=== PATIENT | female | born 1970 | race Caucasian/White ===

== ENCOUNTER 2016-07-11 12:58 | Emergency (ER) | payer OTHER ==
[2016-07-11 13:08] VITALS: BP 137/80; PULSE 90; RESP 18; TEMP 98.5
[2016-07-11] MEDS ORDERED: KETOROLAC 60 MG/2 ML VIAL IM STA (14:04)
[2016-07-11] MEDS ORDERED: methylPREDNISolone SOD SUCCI 125 MG/2 ML VIAL IM ONE (14:04)
[2016-07-11] MEDS ORDERED: CYCLOBENZAPRINE 10MG STARTER 3 TAB BTL PO STA (14:08)
--- NOTE | 2016-07-11 14:12 | ED ---
Back Pain HPI - General Chief Complaint: Back Pain/Injury Stated Complaint: Back Pain Time Seen by Provider: 07/11/16 13:40 Source: patient, RN notes reviewed Limitations: no limitations - History of Present Illness Initial Comments: Patient is a 45-year-old female chief complaint of right leg sciatica pain for the past week. 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 She denies any other trauma or injury to cause this. She states this is happened to her before but was a year ago. She reports that she's been trying muscle relaxers and Tylenol however does not help the pain. Patient denies any fever or chills or saddle anesthesias. She reports that she does have no foot drop and has full range of motion. Hip however just causes some significant pain with straight leg raise. Patient is currently standing at the bedside. Patient denies any recent fever , chills, shortness of breath, chest pain,abdominal pain, nausea vomiting, numbness or tingling, dysuria or hematuria, constipation or diarrhea, headaches or visual changes, or any other current symptoms - Related Data Previous Rx's Medication Instructions Recorded HYDROcodone/APAP 5-325MG [[place] 1 tab PO Q6HR PRN #30 tab 07/31/15 5-325] Ibuprofen [Motrin] 600 mg PO Q8HR PRN #30 tab 07/31/15 Orphenadrine [Norflex] 100 mg PO Q12H PRN #10 tablet.er 07/31/15 Cyclobenzaprine [Flexeril] 10 mg PO TID #15 tab 07/11/16 Dexamethasone 0.75 mg PO DAILY #12 tab 07/11/16 HYDROcodone/APAP 5-325MG [[place] 1 tab PO Q6HR PRN #15 tab 07/11/16 5-325] Allergies Allergy/AdvReac Type Severity Reaction Status Date / Time No Known Allergies Allergy Verified 07/11/16 13:08 Review of Systems ROS Statement: Those systems with pertinent positive or pertinent negative responses have been documented in the HPI. ROS Other: All systems not noted in ROS Statement are negative. Past Medical History Past Medical History: No Reported History Additional Past Medical History / Comment(s): BACK PAIN History of Any Multi-Drug Resistant Organisms: None Reported Past Surgical History: Tubal Ligation Past Psychological History: Anxiety Smoking Status: Current every day smoker Past Alcohol Use History: None Reported Past Drug Use History: Marijuana General Exam - General Exam Comments Initial Comments: Patient is a pacing 45-year-old female. Patient appears to be in significant discomfort radiating down the right leg. Limitations: no limitations General appearance: alert, in no apparent distress Head exam: Present: atraumatic, normocephalic, normal inspection Eye exam: Present: normal appearance, PERRL, EOMI. Absent: scleral icterus, conjunctival injection, periorbital swelling ENT exam: Present: normal exam, mucous membranes moist Neck exam: Present: normal inspection. Absent: tenderness, meningismus, lymphadenopathy Respiratory exam: Present: normal lung sounds bilaterally. Absent: respiratory distress, wheezes, rales, rhonchi, stridor Cardiovascular Exam: Present: regular rate, normal rhythm, normal heart sounds. Absent: systolic murmur, diastolic murmur, rubs, gallop, clicks GI/Abdominal exam: Present: soft, normal bowel sounds. Absent: distended, tenderness, guarding, rebound, rigid Extremities exam: Present: normal inspection, full ROM, normal capillary refill. Absent: tenderness, pedal edema, joint swelling, calf tenderness Back exam: Present: normal inspection, tenderness (Right lumbar spinal tenderness.), other (Positive straight leg exam.). Absent: full ROM Expanded Back exam: Sciatic Notch Tenderness: Right, Positive Straight Leg Raise: Right Neurological exam: Present: alert, oriented X3, CN II-XII intact Psychiatric exam: Present: normal affect, normal mood Skin exam: Present: warm, dry, intact, normal color. Absent: rash Course Vital Signs 07/11/16 13:05 Temperature 98.5 F Pulse Rate 90 Respiratory 18 Rate Blood Pressure 137/80 O2 Sat by Pulse 99 Oximetry Medical Decision Making - Medical Decision Making Patient is a 45-year-old with right-sided leg sciatic back pain. Patient will be given IM Toradol and Solu-Medrol. She is given by mouth Norflex. Patient reports that the pain medication is starting to help. She denies any x-rays or imaging studies at this time. Patient will be discharged with pain medication and muscle relaxers. I discussed close follow-up with a primary care physician. Patient understands treatment plan will comply. Also restrict returning there is any signs of saddle anesthesias or urinary incontinence. Disposition Clinical Impression: Right-sided low back pain with sciatica Disposition: HOME SELF-CARE Condition: Good Instructions: Acute Low Back Pain (ED), Sciatica (ED) Additional Instructions: Patient advised to rest, apply heat and ice over the lower back. Take medications as prescribed. Follow-up with correspondence specialist if symptoms continue persist. Return to emergency Department if any alarming signs or symptoms occur. Prescriptions: Cyclobenzaprine [Flexeril] 10 mg PO TID #15 tab Dexamethasone 0.75 mg PO DAILY #12 tab HYDROcodone/APAP 5-325MG [[place] 5-325] 1 tab PO Q6HR PRN #15 tab PRN Reason: Pain Referrals: Polly Bowen MD [STAFF PHYSICIAN] - 1-2 days Time of Disposition: 14:15
== END 2016-07-11 14:27 | disposition home or self-care (01) ==
LOC: EC 12:58
DX: M54.41 Lumbago with sciatica, right side (principal); F17.200 Nicotine dependence, unspecified, uncomplicated
CPT/HCPCS: 99283; 96372 ×2; J2930; J1885

== ENCOUNTER 2016-12-20 08:37 | Emergency (ER) | payer OTHER ==
[2016-12-20 08:50] VITALS: BP 149/80; PULSE 100; RESP 20; TEMP 98.2
--- NOTE | 2016-12-20 09:02 | ED ---
General Adult HPI - General Chief complaint: Back Pain/Injury Stated complaint: BACK PAIN Time Seen by Provider: 12/20/16 08:52 Source: patient, RN notes reviewed, old records reviewed Mode of arrival: ambulatory Limitations: no limitations - History of Present Illness Initial comments: Patient 46-year-old female who presents emergency room today with a chief complaint of sciatic pain going down the right leg. She does not that she's had in the past. Denies any specific injury or trauma. States pain started approximately a week ago seems to be getting worse. Since she's tried some ibuprofen and Tylenol at home with little relief the symptoms. Does admit that she's been seen here in the emergency room for this complaint and past. [employer] patient works for her is [place], ibuprofen, Norflex. She denies any bowel or bladder incontinence retention. Denies any saddle anesthesia. Denies any other complaints or associated symptoms. Patient denies any recent fever, chills, shortness of breath, chest pain, abdominal pain, nausea or vomiting, dysuria or hematuria, constipation or diarrhea, headaches or visual changes, or any other complaints. - Related Data Home Medications Medication Instructions Recorded Confirmed Acetaminophen [Tylenol Extra 1,500 mg PO BID PRN 12/20/16 12/20/16 Strength] Ibuprofen [Advil] 600 mg PO BID PRN 12/20/16 12/20/16 Previous Rx's Medication Instructions Recorded Hydrocodone/Acetaminophen [[place] 1 each PO Q6HR PRN #15 tab 12/20/16 5-325] Ibuprofen [Motrin] 600 mg PO Q6HR PRN #40 day 12/20/16 Orphenadrine [Norflex] 100 mg PO Q12H #20 tablet.er 12/20/16 Allergies Allergy/AdvReac Type Severity Reaction Status Date / Time No Known Allergies Allergy Verified 12/20/16 08:53 Review of Systems ROS Statement: Those systems with pertinent positive or pertinent negative responses have been documented in the HPI. ROS Other: All systems not noted in ROS Statement are negative. Past Medical History Past Medical History: No Reported History Additional Past Medical History / Comment(s): BACK PAIN History of Any Multi-Drug Resistant Organisms: None Reported Past Surgical History: Tubal Ligation Past Psychological History: Anxiety, Depression Smoking Status: Current every day smoker Past Alcohol Use History: None Reported Past Drug Use History: Marijuana General Exam - General Exam Comments Initial Comments: General: The patient is awake and alert, in no distress, and does not appear acutely ill. Eye: Pupils are equal, round and reactive to light, extra-ocular movements are intact. No nystagmus. There is normal conjunctiva bilaterally. No signs of icterus. Ears, nose, mouth and throat: There are moist mucous membranes and no oral lesions. Neck: The neck is supple, there is no tenderness or JVD. Cardiovascular: There is a regular rate and rhythm. No murmur, rub or gallop is appreciated. Respiratory: Lungs are clear to auscultation, respirations are non-labored, breath sounds are equal. No wheezes, stridor, rales, or rhonchi. Musculoskeletal: Paracervical thoracic, lumbar spine. No step-offs forms appreciated. Patient does have tenderness lower lumbar from L2 to S1. Paravertebral tenderness greater on the right side of the left. Strength 5/5. Sensation intact. Pulses equal bilaterally 2+. Neurological: A&O x 3. CN II-XII intact, There are no obvious motor or sensory deficits. Coordination appears grossly intact. Speech is normal. Skin: Skin is warm and dry and no rashes or lesions are noted. Psychiatric: Cooperative, appropriate mood & affect, normal judgment. Limitations: no limitations Course Vital Signs 12/20/16 08:47 Temperature 98.2 F Pulse Rate 100 Respiratory 20 Rate Blood Pressure 149/80 O2 Sat by Pulse 98 Oximetry Medical Decision Making - Medical Decision Making Patient mitts that the symptoms are consistent with sciatic pain that she's had in the past. Denies any injury or trauma. There is no bowel or bladder incontinence or retention. No saddle anesthesia. Patient will be given a short prescription of pain medication and Norflex to go home with. She is advised follow-up the family doctor for further evaluation and possible MRI. Disposition Clinical Impression: Acute exacerbation of chronic low back pain Disposition: HOME SELF-CARE Condition: Good Instructions: Chronic Back Pain (ED) Additional Instructions: Please use medication as discussed. Please follow-up with family doctor in the next 2 days of symptoms have not improved. Please return to emergency room if the symptoms increase or worsen or for any other concerns. Prescriptions: Hydrocodone/Acetaminophen [[place] 5-325] 1 each PO Q6HR PRN #15 tab PRN Reason: Pain Ibuprofen [Motrin] 600 mg PO Q6HR PRN #40 day PRN Reason: Pain Orphenadrine [Norflex] 100 mg PO Q12H #20 tablet.er Referrals: None,Stated [Primary Care Provider] - 1-2 days Polly Bowen MD [STAFF PHYSICIAN] - 1-2 days Time of Disposition: 09:01
== END 2016-12-20 09:09 | disposition home or self-care (01) ==
LOC: EC 08:37
DX: G89.29 Other chronic pain (principal); M54.5 Low back pain; F17.200 Nicotine dependence, unspecified, uncomplicated
CPT/HCPCS: 99283

== ENCOUNTER 2016-12-27 07:25 | Emergency (ER) | payer OTHER ==
[2016-12-27 07:34] VITALS: BP 149/68; PULSE 82; RESP 17; TEMP 97
--- NOTE | 2016-12-27 08:30 | ED ---
General Adult HPI - General Chief complaint: Back Pain/Injury Stated complaint: sciaticia Time Seen by Provider: 12/27/16 08:16 Source: patient, RN notes reviewed Mode of arrival: ambulatory Limitations: no limitations - History of Present Illness Initial comments: 46-year-old female who presents emergency room today with a chief complaint of increased lower back pain the left side. She states she does have a history of chronic low back pain. States she was seen here recently given medications for this but states that she was at work and lifted up a empty box and started having increased pain left lower back. She denies any bowel or bladder incontinence retention. Denies any saddle anesthesia. Denies any lumbar radiculopathy. Sensations show has 1 tab of [place] and Norflex at home. Patient denies any other complaints or symptoms. Patient denies any recent fever , chills, shortness of breath, chest pain, abdominal pain, nausea or vomiting, numbness or tingling, dysuria or hematuria, constipation or diarrhea, headaches or visual changes, or any other complaints. - Related Data Home Medications Medication Instructions Recorded Confirmed Hydrocodone/Acetaminophen [[place] 1 tab PO Q6HR PRN 12/27/16 12/27/16 5-325] Previous Rx's Medication Instructions Recorded Ibuprofen [Motrin] 600 mg PO Q6HR PRN #40 day 12/20/16 Orphenadrine [Norflex] 100 mg PO Q12H #20 tablet.er 12/20/16 Dexamethasone 0.75 mg PO DIRECTED #12 tablet 12/27/16 Hydrocodone/Acetaminophen [[place] 1 each PO Q6HR PRN #8 tab 12/27/16 5-325] Ibuprofen [Motrin] 600 mg PO Q6HR PRN #30 day 12/27/16 Orphenadrine [Norflex] 100 mg PO Q12H #20 tablet.er 12/27/16 Allergies Allergy/AdvReac Type Severity Reaction Status Date / Time No Known Allergies Allergy Verified 12/27/16 08:02 Review of Systems ROS Statement: Those systems with pertinent positive or pertinent negative responses have been documented in the HPI. ROS Other: All systems not noted in ROS Statement are negative. Past Medical History Past Medical History: No Reported History Additional Past Medical History / Comment(s): BACK PAIN History of Any Multi-Drug Resistant Organisms: None Reported Past Surgical History: Tubal Ligation Past Psychological History: Anxiety, Depression Smoking Status: Current every day smoker Past Alcohol Use History: None Reported Past Drug Use History: Marijuana General Exam - General Exam Comments Initial Comments: General: The patient is awake and alert, in no distress, and does not appear acutely ill. Eye: Pupils are equal, round and reactive to light, extra-ocular movements are intact. No nystagmus. There is normal conjunctiva bilaterally. No signs of icterus. Ears, nose, mouth and throat: There are moist mucous membranes and no oral lesions. Neck: The neck is supple, there is no tenderness or JVD. Cardiovascular: There is a regular rate and rhythm. No murmur, rub or gallop is appreciated. Respiratory: Lungs are clear to auscultation, respirations are non-labored, breath sounds are equal. No wheezes, stridor, rales, or rhonchi. Gastrointestinal: Soft, non-distended, non-tender abdomen without masses or organomegaly noted. There is no rebound or guarding present. No CVA tenderness. Bowel sounds are unremarkable. Musculoskeletal: Normal ROM. No step-offs forms appreciated in thoracic lumbar spine. Mild tenderness over the spinous processes. Patient does have paravertebral tenderness on the left lower lumbar. Strength 5/5. Sensation intact. Pulses equal bilaterally 2+. Neurological: A&O x 3. CN II-XII intact, There are no obvious motor or sensory deficits. Coordination appears grossly intact. Speech is normal. Skin: Skin is warm and dry and no rashes or lesions are noted. Psychiatric: Cooperative, appropriate mood & affect, normal judgment. Limitations: no limitations Course Vital Signs 12/27/16 07:31 Temperature 97.0 F L Pulse Rate 82 Respiratory 17 Rate Blood Pressure 149/68 O2 Sat by Pulse 99 Oximetry Medical Decision Making - Medical Decision Making Admission are made prescription system report was reviewed revealing patient has not had any other narcotics other than her last visit when she was seen here and given 15 tablets [place]. Patient will be given a short prescription of 6 tabs of [place] today. She is advised that she needs follow-up family doctor. Disposition Clinical Impression: Acute exacerbation of chronic low back pain Disposition: HOME SELF-CARE Condition: Good Instructions: Chronic Back Pain (ED) Additional Instructions: Please use medication as discussed. Please follow-up with family doctor in the next 2 days of symptoms have not improved. Please return to emergency room if the symptoms increase or worsen or for any other concerns. Prescriptions: Dexamethasone 0.75 mg PO DIRECTED #12 tablet Hydrocodone/Acetaminophen [[place] 5-325] 1 each PO Q6HR PRN #8 tab PRN Reason: Pain Ibuprofen [Motrin] 600 mg PO Q6HR PRN #30 day PRN Reason: Pain Orphenadrine [Norflex] 100 mg PO Q12H #20 tablet.er Referrals: None,Stated [Primary Care Provider] - 1-2 days Time of Disposition: 08:29
== END 2016-12-27 08:39 | disposition home or self-care (01) ==
LOC: EC 07:25
DX: G89.29 Other chronic pain (principal); M54.5 Low back pain; F17.200 Nicotine dependence, unspecified, uncomplicated
CPT/HCPCS: 99283

== ENCOUNTER 2016-12-28 06:21 | Emergency (ER) | payer OTHER ==
[2016-12-28] MEDS ORDERED: MORPHINE SULFATE 4 MG/ML SYRINGE IM STA (07:06)
[2016-12-28] MEDS ORDERED: KETOROLAC 60 MG/2 ML VIAL IM STA (07:06)
[2016-12-28] MEDS ORDERED: DIAZEPAM 5 MG/ML 2 ML SYRINGE IM ONE (07:07)
--- NOTE | 2016-12-28 07:15 | ED ---
General Adult HPI - General Chief complaint: Back Pain/Injury Stated complaint: Back Pain Time Seen by Provider: 12/28/16 07:00 Source: patient, RN notes reviewed, old records reviewed Mode of arrival: wheelchair Limitations: no limitations - History of Present Illness Initial comments: 1-year-old female presents for reevaluation of back pain. Patient does have history of chronic back pain and right-sided sciatica. Patient states yesterday she was coughing had sudden onset of pain. Pain is localized to the back. No numbness or tingling. No radiating pain to the lower extremities. No fever chills. Patient was discharged yesterday with pain medication. She was unable to tolerate these. She did throw up due to pain. Denies any bowel or bladder incontinence. Patient has had some difficulty in breathing secondary to pain. She is not on any long-term narcotics for pain. She has no significant past medical history. - Related Data Home Medications Medication Instructions Recorded Confirmed Hydrocodone/Acetaminophen [[place] 1 tab PO Q6HR PRN 12/27/16 12/28/16 5-325] Previous Rx's Medication Instructions Recorded Ibuprofen [Motrin] 600 mg PO Q6HR PRN #40 day 12/20/16 Orphenadrine [Norflex] 100 mg PO Q12H #20 tablet.er 12/20/16 Dexamethasone 0.75 mg PO DIRECTED #12 tablet 12/27/16 HYDROcodone/APAP 5-325MG [[place] 1 tab PO Q6HR PRN #18 tab 12/28/16 5-325] Allergies Allergy/AdvReac Type Severity Reaction Status Date / Time No Known Allergies Allergy Verified 12/27/16 08:02 Review of Systems ROS Statement: Those systems with pertinent positive or pertinent negative responses have been documented in the HPI. ROS Other: All systems not noted in ROS Statement are negative. Past Medical History Past Medical History: No Reported History Additional Past Medical History / Comment(s): BACK PAIN History of Any Multi-Drug Resistant Organisms: None Reported Past Surgical History: Tubal Ligation Past Psychological History: Anxiety, Depression Smoking Status: Current every day smoker Past Alcohol Use History: None Reported Past Drug Use History: Marijuana General Exam Limitations: no limitations General appearance: alert, in distress Head exam: Present: atraumatic, normocephalic Eye exam: Present: normal appearance, PERRL ENT exam: Present: normal exam, mucous membranes moist Neck exam: Present: normal inspection. Absent: tenderness Respiratory exam: Present: respiratory distress Cardiovascular Exam: Present: regular rate, normal rhythm GI/Abdominal exam: Present: soft. Absent: distended, tenderness Extremities exam: Present: normal inspection, tenderness (Left paraspinal tenderness to palpation), other (Bilateral patellar reflexes 1-2+) Back exam: Absent: CVA tenderness (R), CVA tenderness (L) Neurological exam: Present: alert, oriented X3, reflexes normal. Absent: motor sensory deficit Psychiatric exam: Present: normal affect, normal mood Skin exam: Present: warm, dry, intact Course Vital Signs 12/28/16 12/28/16 06:23 08:50 Temperature 97.0 F L Pulse Rate 95 84 Respiratory 20 18 Rate Blood Pressure 143/76 125/71 O2 Sat by Pulse 98 98 Oximetry - Reevaluation(s) Reevaluation #1: 12/28/16 10:13 On reevaluation, patient is feeling much better. She is ambulatory without difficulty. Medical Decision Making - Medical Decision Making 46-year-old female with history of chronic back pain presenting with acute back pain over the past with orthopedist patient's second ER visit. On reevaluation she has significant paraspinal tenderness on the left. Patient normally describes her pain on the right. No shooting pain in the legs. No family weakness. No sensory changes. No bowel or bladder issues. Patient is given intramuscular pain medication. Urinalysis is obtained on demand. There is some signs of infection, patient does not have symptoms. Urine culture will be obtained. CT lumbar spine is obtained, does show some bilateral lysis at L5, and grade 1 spondylolisthesis L5-S1. This is discussed with orthopedic surgery. This is not an acute finding. Patient will follow-up on an outpatient basis. Patient is agreeable with this plan. She is feeling significantly better. She will be given some additional pain medication and can return to the emergency department with worsening symptoms. - Lab Data Lab Results 12/28/16 12/28/16 Range/Units 07:00 07:00 Urine Color Yellow Urine Appearance Cloudy H (Clear) Urine pH 5.5 (5.0-8.0) Ur Specific [place] 1.019 (1.001-1.035) Urine Protein Trace H (Negative) Urine Glucose (UA) Negative (Negative) Urine Ketones 1+ H (Negative) Urine Blood Trace H (Negative) Urine Nitrite Positive H (Negative) Urine Bilirubin Negative (Negative) Urine Urobilinogen <2.0 (<2.0) mg/dL Ur Leukocyte Esterase Moderate H (Negative) Urine RBC 1 (0-5) /hpf Urine WBC 12 H (0-5) /hpf Ur Squamous Epith Cells 6 H (0-4) /hpf Urine Bacteria Many H (None) /hpf Urine Mucus Occasional H (None) /hpf Urine HCG, Qual Not Detected (Not Detectd) Disposition Clinical Impression: Strain of lumbar region, Acute exacerbation of chronic low back pain Disposition: HOME SELF-CARE Condition: Good Instructions: Acute Low Back Pain (ED) Prescriptions: HYDROcodone/APAP 5-325MG [[place] 5-325] 1 tab PO Q6HR PRN #18 tab PRN Reason: Pain Referrals: None,Stated [Primary Care Provider] - 1-2 days Time of Disposition: 09:45
[2016-12-28 07:27] LABS: Appearance,Urine Cloudy (Clear); Bacteria,Urine Many /hpf; Bilirubin,Urine Negative (Negative); Glucose,Urine (UA) Negative (Negative); Ketones,Urine 1+ (Negative); Leukocyte Esterase,Urine Moderate (Negative); Mucus,Urine Occasional /hpf; Nitrite,Urine Positive (Negative); PH, Urine 5.5 (5.0-8.0); Particle Count 35274; Protein,Urine Trace (Negative); RBC,Urine 1 /hpf (0-5); Specific Gravity,Urine 1.019 (1.001-1.035); Squamous Epithelial Cell,Urine 6 /hpf (0-4); UA Billing (MACRO vs. MICRO) MICRO; Urobilinogen,Urine <2.0 mg/dL (<2.0); WBC,Urine 12 /hpf (0-5)
[2016-12-28 08:51] VITALS: RESP 18
--- NOTE | 2016-12-28 08:59 | CT ---
EXAMINATION TYPE: CT lumbar spine wo con DATE OF EXAM: 12/28/2016 8:16 AM COMPARISON: NONE HISTORY: Back pain CT DLP: 377.4 mGycm Automated exposure control for dose reduction was used. Unenhanced CT of the lumbar spine was performed. Bone and soft tissue window settings are submitted as well as coronal and sagittal reconstructions. FINDINGS: Visualized portions of the lungs are clear. No pleural fluid is seen. There is mild atheromatous calcification of the visualized arterial tree. Paraspinal soft tissues are otherwise unremarkable. There is a bilateral lysis at L5 with a grade 1 spondylolisthesis of L5 on S 1. There is a degenerative grade 1 spondylolisthesis of L3 on L4. At T12-L1, there is hypertrophic spur present in a left paracentral location mildly narrowing the lef t intervertebral foramen. There is no significant compressive discopathy. The facets are unremarkable . At L1-2, the intervertebral foramina are well maintained. There is no significant compressive discopa thy. The facets are unremarkable. L2-L3: Intervertebral foramina are widely patent. There is no significant compressive discopathy. The facets are unremarkable. L3-L4: There is disc space loss. There are hypertrophic changes in the facets. Intervertebral foramin a are well maintained. There is a bilobed disc displacement. L4-L5: Intervertebral foramina are widely maintained. There is a diffuse disc displacement. There is minimal facet hypertrophy. L5-S1: There is a bilateral lysis with a grade 1 spondylolisthesis of L5 on S1. There is a pseudodisc . Intervertebral foramina appear well maintained. IMPRESSION: 1. BILATERAL LYSIS AT L5 WITH A GRADE 1 SPONDYLOLISTHESIS OF L5 ON S1. 2. NO SIGNIFICANT COMPRESSIVE DISCOPATHY. 3. FACET ARTHROPATHY, MOST MARKED AT L3-4. 4. LEFT-SIDED INTERVERTEBRAL FORAMINAL NARROWING, T12-L1.
[2016-12-28 11:05] VITALS: BP 178/94; PULSE 82; TEMP 97.5
== END 2016-12-28 10:59 | disposition home or self-care (01) ==
LOC: EC 06:21
DX: S39.012A Strain of muscle, fascia and tendon of lower back, initial encounter (principal); M54.5 Low back pain; G89.29 Other chronic pain; F17.200 Nicotine dependence, unspecified, uncomplicated
CPT/HCPCS: 81001; 81025; 87086; 87077; 87186; 72131; 99284; 96372 ×3; J2270; J3360; J1885

== ENCOUNTER 2017-04-07 11:54 | Emergency (ER) | payer OTHER ==
[2017-04-07] MEDS ORDERED: CYCLOBENZAPRINE 10MG STARTER 3 TAB BTL PO STA (13:21)
--- NOTE | 2017-04-07 13:23 | ED ---
Back Pain HPI - General Chief Complaint: Back Pain/Injury Stated Complaint: BACK PAIN Time Seen by Provider: 04/07/17 12:52 Source: patient, RN notes reviewed, old records reviewed Limitations: no limitations - History of Present Illness Initial Comments: This is a 46 -year-old female presents with acute lower back pain radiating down her right leg. She reports she has a history of sciatica. She states that the symptoms started three days ago. She's currently undergoing of respiratory on this as well. She denies any dysuria, denies saddle anesthesias. She denies any chest pain, shortness of breath, nausea or vomiting. She reports that she was diagnosed with sciatica out of her pain medication. - Related Data Home Medications Medication Instructions Recorded Confirmed Acetaminophen Tab [Tylenol Tab] 1,000 mg PO Q6HR PRN 04/07/17 04/07/17 Acetaminophen/Diphenhydramine 1 tab PO HS PRN 04/07/17 04/07/17 [Tylenol PM 500-25mg] Multivitamins, Thera [Multivitamin 1 tab PO DAILY 04/07/17 04/07/17 (formulary)] Previous Rx's Medication Instructions Recorded Acetaminophen-Codeine 300-30mg 1 tab PO Q6H PRN #12 tablet 04/07/17 [Tylenol #3] Cyclobenzaprine [Flexeril] 10 mg PO TID #15 tab 04/07/17 methylPREDNISolone Dose Pack 4 mg PO DIRECTED #21 package 04/07/17 [Medrol Dose Pack] Allergies Allergy/AdvReac Type Severity Reaction Status Date / Time No Known Allergies Allergy Verified 04/07/17 12:54 Review of Systems ROS Statement: Those systems with pertinent positive or pertinent negative responses have been documented in the HPI. ROS Other: All systems not noted in ROS Statement are negative. Past Medical History Past Medical History: No Reported History Additional Past Medical History / Comment(s): BACK PAIN History of Any Multi-Drug Resistant Organisms: None Reported Past Surgical History: Tubal Ligation Past Psychological History: Anxiety, Depression Smoking Status: Current every day smoker Past Alcohol Use History: None Reported Past Drug Use History: Marijuana General Exam - General Exam Comments Initial Comments: This is a 46 year old female, no distress. Limitations: no limitations General appearance: alert, in no apparent distress Head exam: Present: atraumatic, normocephalic, normal inspection Eye exam: Present: normal appearance, PERRL, EOMI. Absent: scleral icterus, conjunctival injection, periorbital swelling ENT exam: Present: normal exam, mucous membranes moist Neck exam: Present: normal inspection. Absent: tenderness, meningismus, lymphadenopathy Respiratory exam: Present: normal lung sounds bilaterally. Absent: respiratory distress, wheezes, rales, rhonchi, stridor Cardiovascular Exam: Present: regular rate, normal rhythm, normal heart sounds. Absent: systolic murmur, diastolic murmur, rubs, gallop, clicks GI/Abdominal exam: Present: soft, normal bowel sounds. Absent: distended, tenderness, guarding, rebound, rigid Extremities exam: Present: normal inspection, full ROM, normal capillary refill. Absent: tenderness, pedal edema, joint swelling, calf tenderness Back exam: Present: normal inspection, paraspinal tenderness (right lumbar paraspinal tenderness. Pain at sciatic notch) Neurological exam: Present: alert, oriented X3, CN II-XII intact Psychiatric exam: Present: normal affect, normal mood Skin exam: Present: warm, dry, intact, normal color. Absent: rash Course Vital Signs 04/07/17 04/07/17 12:23 13:30 Temperature 97 F L 98.0 F Pulse Rate 73 88 Respiratory 18 20 Rate Blood Pressure 115/83 132/80 O2 Sat by Pulse 98 98 Oximetry Medical Decision Making - Medical Decision Making 46 year old female with acute lower back pain radiating down right leg. REports sciatic nerve is flaring up. No falls or trauma. Patient was offered IM injections and refused. She has an upper respiratory infection as well. Patient will be discharged with muscle relaxer, steroids, and pain mediaction. Discussed follow up with PCP and return parameters discussed. Disposition Clinical Impression: Back pain, Sciatica Disposition: HOME SELF-CARE Condition: Good Instructions: Acute Low Back Pain (ED) Additional Instructions: Advised to apply heat and ice over the area. Take the medications as prescribed. Return to the emergency department if any alarming signs or symptoms occur. Follow-up with primary care provider. Prescriptions: Acetaminophen-Codeine 300-30mg [Tylenol #3] 1 tab PO Q6H PRN #12 tablet PRN Reason: Pain Cyclobenzaprine [Flexeril] 10 mg PO TID #15 tab methylPREDNISolone Dose Pack [Medrol Dose Pack] 4 mg PO DIRECTED #21 package Referrals: None,Stated [Primary Care Provider] - 1-2 days Time of Disposition: 13:21
[2017-04-07 13:34] VITALS: BP 132/80; PULSE 88; RESP 20; TEMP 98
== END 2017-04-07 13:30 | disposition home or self-care (01) ==
LOC: EC 11:54
DX: M54.40 Lumbago with sciatica, unspecified side (principal); F17.200 Nicotine dependence, unspecified, uncomplicated; Z79.899 Other long term (current) drug therapy
CPT/HCPCS: 99283

== ENCOUNTER 2018-03-25 10:12 | Emergency (ER) | payer OTHER ==
[2018-03-25 10:33] VITALS: BP 143/85; PULSE 98; RESP 18; TEMP 97.8
[2018-03-25] MEDS ORDERED: KETOROLAC 60 MG/2 ML VIAL IM STA (11:00)
--- NOTE | 2018-03-25 11:05 | ED ---
General Adult HPI - General Chief complaint: Back Pain/Injury Stated complaint: sciatic nerve Time Seen by Provider: 03/25/18 10:42 Source: patient, RN notes reviewed Mode of arrival: ambulatory Limitations: no limitations - History of Present Illness Initial comments: Patient is a pleasant 47-year-old female presenting to the emergency Department with sciatic pain. Patient does have a history of this previously and does have a history of previous ER visits for this. Patient states normally when she has a she gets a shot as well as Vicodin and a muscle relaxer and Motrin. Patient states discomfort starts right sacral region extends towards the leg. No weakness. No tendons retention of bowel or bladder. No fevers. - Related Data Home Medications Medication Instructions Recorded Confirmed Ibuprofen [Advil] 600 mg PO Q8HR PRN 03/25/18 03/25/18 Previous Rx's Medication Instructions Recorded Hydrocodone/Acetaminophen [Pollock 1 each PO Q4HR PRN #15 tab 03/25/18 5-325] Ibuprofen [Motrin] 600 mg PO Q6HR PRN #20 tab 03/25/18 Allergies Allergy/AdvReac Type Severity Reaction Status Date / Time Penicillins Allergy Unknown Verified 03/25/18 10:49 Review of Systems ROS Statement: Those systems with pertinent positive or pertinent negative responses have been documented in the HPI. ROS Other: All systems not noted in ROS Statement are negative. Constitutional: Denies: fever Eyes: Denies: eye pain ENT: Denies: ear pain Respiratory: Denies: cough Cardiovascular: Denies: chest pain Endocrine: Denies: fatigue Gastrointestinal: Denies: abdominal pain Genitourinary: Denies: dysuria Musculoskeletal: Reports: back pain (Sciatic pain) Skin: Denies: rash Neurological: Denies: weakness Past Medical History Past Medical History: No Reported History Additional Past Medical History / Comment(s): BACK PAIN History of Any Multi-Drug Resistant Organisms: None Reported Past Surgical History: Tubal Ligation Past Psychological History: Anxiety, Depression Smoking Status: Current every day smoker Past Alcohol Use History: None Reported Past Drug Use History: Marijuana General Exam Limitations: no limitations General appearance: alert, in no apparent distress Head exam: Present: atraumatic Eye exam: Present: normal appearance Neck exam: Present: normal inspection Respiratory exam: Present: normal lung sounds bilaterally Cardiovascular Exam: Present: regular rate, normal rhythm Expanded Peripheral pulses: 2+: Dorsalis Pedis (R), Dorsalis Pedis (L) GI/Abdominal exam: Present: soft. Absent: distended, tenderness, pulsatile mass Extremities exam: Present: normal inspection Back exam: Present: tenderness (Mild tenderness right sacroiliac region) Neurological exam: Present: alert. Absent: motor sensory deficit Expanded Motor strength exam: RLE: 5, LLE: 5 Psychiatric exam: Present: normal affect, normal mood Skin exam: Present: normal color Course Vital Signs 03/25/18 10:31 Temperature 97.8 F Pulse Rate 98 Respiratory 18 Rate Blood Pressure 143/85 O2 Sat by Pulse 100 Oximetry Disposition Clinical Impression: Sciatica Disposition: HOME SELF-CARE Condition: Stable Instructions: Sciatica (ED) Additional Instructions: Please follow-up with primary care physician in the next couple of days for recheck. Return for increased pain, weakness, loss of control of bowel or bladder, worsening symptoms or other concerns. Prescriptions: Hydrocodone/Acetaminophen [Pollock 5-325] 1 each PO Q4HR PRN #15 tab PRN Reason: Pain Ibuprofen [Motrin] 600 mg PO Q6HR PRN #20 tab PRN Reason: Pain Is patient prescribed a controlled substance at d/c from ED?: Yes When asked, does pt state using other controlled substances?: No If prescribed controlled substance>3 days was MAPS reviewed?: Prescribed <3 Days If opioid is for acute pain is fill amount 7 days or less?: Yes If Rx opioid, was Start Talking consent form obtained?: Yes Referrals: Tereso Sewell MD [STAFF PHYSICIAN] - 1-2 days Time of Disposition: 11:04
== END 2018-03-25 11:25 | disposition home or self-care (01) ==
LOC: EC 10:12
DX: M54.30 Sciatica, unspecified side (principal); F17.200 Nicotine dependence, unspecified, uncomplicated; Z88.0 Allergy status to penicillin
CPT/HCPCS: 99283; 96372; J1885